=== PATIENT | male | born 1935 | race Caucasian/White ===

== ENCOUNTER → 2016-09-15 | Outpatient (CLI) | payer MEDICARE, OTHER ==
[~2016-09-15] MED LIST: ENXP100I SC; FURO20TA PO; HYDR-3454 PO; LORA10TA76 PO; PNT40TEC PO; SCR1T1 PO; WARF4TAB7 PO; WARF6TAB19 PO; WARFARIN
--- OUTSIDE RECORDS SUMMARY | 2016-09-15 07:43 | XMS REPORT | Continuity of Care Document ---
[facility] Unknown Phone Unavailable Care Team Providers Care Anthropology Professor Name Role Phone Boy Addison PCP Unavailable Source Comments Some departments are not documenting in the electronic medical record. If you do not see the information that you expected, contact Release of Information in the Health Information Management department at [phone] for further assistance in locating additional records[facility] Active Allergies and Adverse Reactions Allergen Noted Date Severity Reactions Comments Heparin 10/10/2013 SEE COMMENTS Heparin antibodies Lovenox 10/10/2013 SEE COMMENTS Heparin antibodies Current Medications Prescription Sig. Disp. Refills Start End Date Status Date pantoprazole DR Take 1 Tab by mouth twice 180 Tab 1 11/09/19 Active (PROTONIX) 40 mg tablet daily. 14 gabapentin (NEURONTIN) Take 2 Caps by mouth 540 Cap 1 11/09/19 Active 300 mg capsule three times daily. 14 docusate (COLACE) 100 mg Take 1 Cap by mouth twice 180 Cap 1 11/09/19 Active capsule daily. 14 polyethylene glycol 3350 Take 17 g by mouth daily. 1530 g 1 11/09/19 Active (GLYCOLAX; MIRALAX) 17 14 gram/dose powder senna/docusate Take 2 Tabs by mouth 360 Tab 1 11/09/19 Active (SENOKOT-S) 8.6/50 mg twice daily. 14 tablet loratadine (CLARITIN) 10 Take 1 Tab by mouth 90 Tab 1 11/09/19 Active mg tablet daily. 14 oxyCODone-acetaminophen Take 1-2 Tabs by mouth 30 Tab 0 11/09/19 Active (PERCOCET; ENDOCET; every 6 hours as needed 14 ROXICET) 5-325 mg tablet for Pain Earliest Fill Date: 11/08/13 Max 12 tabs/day cyclobenzaprine Take 1 Tab by mouth three 30 Tab 0 11/09/19 Active (FLEXERIL) 5 mg tablet times daily as needed. 14 warfarin (COUMADIN) 4 mg Take 1.5 Tabs by mouth 135 Tab 1 11/09/19 Active tablet daily. 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 Thrombocytopenia ([facility]) 10/09/2013 Acute blood loss anemia 10/09/2013 Shortness of breath 10/05/2013 PE (pulmonary embolism) 10/05/2013 Chronic anticoagulation 10/05/2013 DVT (deep venous thrombosis) ([facility]) 10/05/2013 Social History Tobacco Use Types Packs/Day Years Used Date Former Smoker 1 48 Quit: 06/07/2013 Smokeless Tobacco: Never Used Comments: Quit 6 months ago Alcohol Use Drinks/Week oz/Week Comments Yes 70 Cans of 42.0 Last drink was 1 week ago [place] of whilskey/day 2-3 beer years, beer before Last Filed Vital Signs Vital Sign Reading Time Taken Blood Pressure 119/70 11/08/2013 11:43 AM CDT Pulse 81 11/08/2013 11:43 AM CDT Temperature 36.6 C (97.8 F) 11/08/2013 11:43 AM CDT Respiratory Rate - - Height 1.778 m (5' 10") 10/29/2013 10:36 AM CDT Weight 94.2 kg (207 lb 10.8 oz) 11/08/2013 4:00 AM CDT Body Mass Index 29.8 11/08/2013 4:00 AM CDT Oxygen Saturation 97% 11/08/2013 11:43 AM CDT Plan of Care Health Maintenance Due Date Last Done Comments Physical (Comprehensive) 1944 Exam Pertussis Vaccine 1948 Tetanus Vaccine 1954 Shingles Vaccine 1997 Prevnar/Pneumovax (#1) 2002 Influenza Vaccine 03/20/2015 Results from Last 3 Months Not on file
== END ==
LOC: CARD 07:40
PROVIDERS: ATTEND Internal Medicine
DX: R00.2 Palpitations (principal)
CPT/HCPCS: 93225; 93226

== ENCOUNTER → 2017-06-15 | Outpatient (CLI) | payer MEDICARE, OTHER ==
[~2017-06-15] MED LIST changes: +CATHETER FLUSH 10 ML SYR IV PRN; +IOHEXOL 350 MG/ML 100 ML (OMNIPAQUE 350) VIAL IV ONE; +NS 100 ML (IVPB) BAG IV ONE
--- NOTE | 2017-06-15 13:22 | Diagnostic Imaging Report ---
PROCEDURE: US right lower extremity venous. TECHNIQUE: Multiple real-time grayscale images were obtained over the right lower extremity in various projections. Additional duplex Doppler and color Doppler images were also obtained. INDICATION: History of right lower extremity DVT. Right leg pain. FINDINGS: There is partial compressibility of the right common femoral vein and the proximal aspect of the right superficial femoral vein. The right common femoral vein demonstrates reversal of flow. There is also reversal of flow in the profunda femoris vein. Partial luminal patency with normal flow direction is seen in the upper segment of the right superficial femoral vein. The mid and lower segments of the superficial femoral vein appear normal with compressibility and flow seen. There are, however, abnormal waveforms with lack of augmentation and respiratory variation. The left common femoral vein demonstrates normal direction of flow. IMPRESSION: Nonocclusive thrombosis involving the right common femoral vein and portion of the right superficial femoral vein in the upper thigh, in favor of chronic DVT. There is reversal of flow in the right common femoral vein and in the profunda femoris suggestive of right iliac venous obstruction. The findings in the pelvis could be evaluated with a CT venogram. Dr. Addison is paged to discuss findings at time of dictation. Dictated by: Dictated on workstation # [id number]
[2017-06-15 15:21] LABS: BLOOD UREA NITROGEN 10 MG/DL (7-18); BUN/CREATININE RATIO 13; CREATININE SERUM 0.77 MG/DL (0.60-1.30); GFR ESTIMATED > 60
--- NOTE | 2017-06-15 16:56 | Diagnostic Imaging Report ---
PROCEDURE: CT abdomen and pelvis with contrast. TECHNIQUE: Multiple contiguous axial images were obtained through the abdomen and pelvis after administration of intravenous contrast. INDICATION: History of colon cancer and abnormal direction of flow in the right common femoral vein. FINDINGS: There is a 3.8 x 3 cm peripherally enhancing lesion within the right hepatic dome with craniocaudal measurement of 4.1 cm with centripetal progressing filling of contrast on delayed phase images compatible with a hemangioma. Scattered calcified granulomas in the spleen and liver are also seen. The pancreas and the adrenal glands appear unremarkable. Cholecystectomy clips are seen. The kidneys have symmetric enhancement and contrast excretion. There is no hydronephrosis. The abdominal aorta is normal in caliber. The right common iliac, right internal iliac, and right external iliac arteries are normally opacified. The upper aspect of the right common iliac vein is occluded. There is abnormal opacification that involves the distal aspect of the right common iliac vein or the right external iliac vein suggestive of an AV fistula. There is question of AV fistula connection seen on the arterial phase series 2 axial image 60 between the right internal iliac artery and the proximal aspect of the right external iliac vein. This is associated with significant dilatation of multiple pelvic veins and the veins in the groin. Suggestion of a recanalized old DVT in the right common femoral vein is seen. No significant free fluid or fluid collection in the abdomen or pelvis is seen. There is an IVC filter in the infrarenal IVC which appears to be patent. No significant free fluid or fluid collection in the abdomen or pelvis. There is diverticulosis. No evidence of diverticulitis. There is diastasis of the recti with an anterior bulge in the anterior abdominal wall, without a defined abdominal wall fascial defect or hernia. The osseous structures demonstrate mild degenerative changes in the lumbar spine and SI joints. IMPRESSION: 1. 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 2. 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 Multiple dilated venous collaterals around the right groin and in the pelvis are seen. The findings were discussed with Dr. Tom Addison by Dr. Madsen at 04:15 p.m. Dictated by: Dictated on workstation # [id number]
== END ==
LOC: RAD 11:41
PROVIDERS: ATTEND Internal Medicine
DX: I77.0 Arteriovenous fistula, acquired (principal); I86.2 Pelvic varices; Z85.038 Personal history of other malignant neoplasm of large intestine
CPT/HCPCS: 36415; 74177; 82565; 84520

== ENCOUNTER → 2017-07-24 | Outpatient (CLI) | payer MEDICARE, OTHER ==
[~2017-07-24] MED LIST changes: -CATHETER FLUSH 10 ML SYR IV PRN; -IOHEXOL 350 MG/ML 100 ML (OMNIPAQUE 350) VIAL IV ONE; -NS 100 ML (IVPB) BAG IV ONE
--- NOTE | 2017-07-24 20:16 | Diagnostic Imaging Report ---
EXAMINATION: Bilateral lower extremity venous ultrasound. INDICATION: Bilateral leg swelling and redness. FINDINGS: On the right, there is normal compression, flow and augmentation demonstrated from the common femoral vein through the popliteal vein and the visualized calf veins are patent. On the left, the common femoral vein cannot be visualized as there is a large low echogenicity collection within the left groin most suggestive of a hematoma. No internal vascularity is evident. This measures 11.0 x 4.2 cm. From the superficial femoral vein on there is normal compression, flow and augmentation. IMPRESSION: 1. Large left groin collection likely reflecting a hematoma, given reported recent procedure. 2. Common femoral vein on the left cannot be evaluated. Otherwise, there is no evidence to suggest deep venous thrombosis. Dictated by: Dictated on workstation # [id number]
== END ==
LOC: RAD 18:12
PROVIDERS: ATTEND Nurse Practitioner Family
DX: R93.7 Abnormal findings on diagnostic imaging of other parts of musculoskeletal system (principal); R22.43 Localized swelling, mass and lump, lower limb, bilateral
CPT/HCPCS: 93970

== ENCOUNTER → 2018-07-22 | Outpatient (CLI) | payer MEDICARE, OTHER ==
--- NOTE | 2018-07-22 09:43 | Diagnostic Imaging Report ---
CLINICAL INDICATION: Patient with carotid stenosis and visual changes. COMPARISON: None. EXAMINATION: Real-time carotid Doppler duplex imaging is performed bilaterally. Peak systolic velocity, ICA/CCA peak systolic ratio, spectral analysis, and vascular morphology are studied. FINDINGS: ARTERY VELOCITY Right Left CCA 0.66 m/s 0.58 m/s ICA 0.65 m/s 0.60 m/s ECA 0.64 m/s 0.49 m/s ICA/CCA 1.0 1.0 VERT.ART Antegrade Antegrade There are very minimal bilateral carotid artery atherosclerotic changes. IMPRESSION: There is no grayscale or Doppler evidence of significant vascular stenosis. Dictated by: Dictated on workstation # [id number]
== END ==
LOC: RAD 08:34
PROVIDERS: ATTEND Internal Medicine
DX: I65.23 Occlusion and stenosis of bilateral carotid arteries (principal); H53.9 Unspecified visual disturbance
CPT/HCPCS: 93880

== ENCOUNTER → 2018-08-05 | Outpatient (CLI) | payer MEDICARE, OTHER ==
--- NOTE | 2018-08-05 09:54 | Diagnostic Imaging Report ---
PROCEDURE: MR imaging of the brain without contrast. TECHNIQUE: Multiplanar, multisequence MR imaging of the brain was performed without contrast. INDICATION: Visual disturbance. No prior studies are available for comparison. The ventricles and sulci are consistent with the patient's age. There is moderate periventricular and subcortical white matter signal abnormality noted consistent with chronic microvascular ischemia and senescent change. No diffusion restriction is identified to suggest acute ischemia. The normal expected flow-voids within the carotid siphons are seen. No acute intra-axial or extra-axial hemorrhage is identified. Corpus callosum is unremarkable. The sella and parasellar structures are unremarkable. Note is made of moderate mucosal thickening bilateral maxillary sinuses. IMPRESSION: Chronic and senescent changes. No acute intracranial process is detected. Dictated by: Dictated on workstation # [id number]
== END ==
LOC: RAD 08:15
PROVIDERS: ATTEND Internal Medicine
DX: H53.9 Unspecified visual disturbance (principal); R54 Age-related physical debility
CPT/HCPCS: 70551

== ENCOUNTER 2019-07-07 05:11 | Emergency (ER) | payer MEDICARE, OTHER ==
[~2019-07-07] VITALS: Ht 177.8 cm; Wt 99.8 kg
[2019-07-07] MEDS ORDERED: LACTATED RINGERS 1,000 ML IV ONE (05:39)
[2019-07-07 05:45] LABS: BASOPHILS % (AUTO) 0 % (0-10); EOSINOPHILS % (AUTO) 0 % (0-10); HEMATOCRIT 43 % (40-54); HEMOGLOBIN 14.9 G/DL (13.3-17.7); LYMPHOCYTES # (AUTO) 0.2 X 10^3 (1.0-4.0); LYMPHOCYTES % (AUTO) 3 % (12-44); MEAN CORPUSCULAR HEMOGLOBIN 34 PG (25-34); MEAN CORPUSCULAR HGB CONC 35 G/DL (32-36); MEAN CORPUSCULAR VOLUME 98 FL (80-99); MONOCYTES # (AUTO) 0.6 X 10^3 (0.0-1.0); MONOCYTES % (AUTO) 8 % (0-12); NEUTROPHILS # (AUTO) 6.9 X 10^3 (1.8-7.8); NEUTROPHILS % (AUTO) 89 % (42-75); PLATELET COUNT 187 10^3/uL (130-400); RED CELL DISTRIBUTION WIDTH 14.1 % (10.0-14.5); WHITE BLOOD COUNT 7.7 10^3/uL (4.3-11.0)
[2019-07-07] MEDS ORDERED: ONDANSETRON 4 MG/2 ML (SDV) Z0FRAN IVP ONE (05:45)
[2019-07-07] MEDS ORDERED: fentaNYL INJECTION 100 MCG/2 ML AMP IVP ONE ×3 (05:45→07:30)
--- NOTE | 2019-07-07 05:48 | ED Abdominal Pain ---
General Chief Complaint: Abdominal/GI Problems Stated Complaint: ABD & BACK PAIN Nursing Triage Note: abdominal/back pain since 0100 Sepsis Screen: No Definite Risk Source of Information: Patient (MARCIN ROGER ) History of Present Illness Date Seen by Provider: Jul 07, 2019 Time Seen by Provider: 05:20 Initial Comments PT ARRIVES VIA POV FROM HOME C/O SEVERE UPPER ABDOMINAL PAIN, RADIATING THROUGH TO BACK--WOKE HIM UP AT 0100 THIS AM NOTHING WORSENS OR IMPROVES PAIN + NAUSEA, VOMITED A SMALL AMOUNT HAD SMALL, HARD BM AT 1700 YESTERDAY NO PROBLEMS URINATING--VOIDED JUST PRIOR TO ARRIVAL--STATES URINE WAS VERY GURVINDER NO FEVER LAST FOOD INTAKE WAS AROUND 1700 YESTERDAY--BAKED POTATO. PT DRINKS ALCOHOL ON REGULAR / DAILY BASIS--HARD LIQUOR/WHISKEY HX OF CHOLECYSTECTOMY NO OTHER ABDOMINAL SURGERIES, PER PT, BUT PER OLD RECORDS, PT HAS HAD BILATERAL INGUINAL HERNIA REPAIRS PT HAS HAD MULTIPLE DVT'S AND PE'S, AND IS ON BLOOD THINNER, AND HAS A VENA CAVA FILTER IN PLACE NO CHEST PAIN NO SHORTNESS OF BREATH PCP: DR. Radha ORR (MARCIN ROGER DO) Allergies and Home Medications Allergies Coded Allergies: No Known Drug Allergies (Verified , 01/13/08) Home Medications Warfarin Sodium 4 Mg Tablet, 4 MG PO DAILY ON , (Reported) Warfarin Sodium 6 Mg Tablet, 6 MG PO DAILY ON , (Reported) Patient Home Medication List Home Medication List Reviewed: Yes (AMISHA HOOVER) Review of Systems Review of Systems Constitutional: no symptoms reported Respiratory: No Symptoms Reported Cardiovascular: No Symptoms Reported Gastrointestinal: See HPI, Abdominal Pain, Constipated; Denies Diarrhea; Nausea, Vomiting Genitourinary: No Symptoms Reported Musculoskeletal: see HPI, back pain Skin: no symptoms reported Psychiatric/Neurological: Anxiety Endocrine: No Symptoms Reported Hematologic/Lymphatic: See HPI (MARCIN ROGER DO) Past Ggummlz-Jizsbd-Nbiwwo Hx Patient Social History Alcohol Use: Regular Use Alcohol Beverage of Choice: Whiskey Recreational Drug Use: No Smoking Status: Former Smoker 2nd Hand Smoke Exposure: No Recent Foreign Travel: No Contact w/Someone Who Travel: No Recent Infectious Disease Expo: No Recent Hopitalizations: No Physical Abuse: No Sexual Abuse: No Mistreated: No Fear: No (MARCIN ROGER DO) Immunizations Up To Date Tetanus Booster (TDap): Less than 5yrs Date of Pneumonia Vaccine: Jun 09, 2019 Date of Influenza Vaccine: Apr 22, 2019 (MARCIN ROGER Keegan LEMON) Seasonal Allergies Seasonal Allergies: Yes (KANAMARCIN Keegan LEMON) Past Medical History Surgeries: Yes (BILAT INGUINAL HERNIA REPAIRS;IVC FILTER;EGD/COLONOSCOPIES; FISTULA REPAIR;) Abdominal, Gallbladder Respiratory: Yes Pulmonary Embolism, Emphysema Cardiac: Yes Deep Vein Thrombosis Neurological: No Reproductive Disorders: No Sexually Transmitted Disease: No Genitourinary: No Gastrointestinal: Yes (ERCP WITH STENT/CHOLECYSTECTOMY;BILAT INGUINAL HERNIA REPAIRS;EGD'S/COLONOS) Abdominal Hernia, Gastrointestinal Bleed, Diverticulosis, Ulcer Musculoskeletal: Yes Arthritis Endocrine: No HEENT: No Cancer: No Psychosocial: Yes Anxiety Integumentary: No Blood Disorders: Yes (HX P.E.,DVT) (KANAMARCIN Allison DO) Family Medical History Stroke 03 MOTHER Physical Exam Vital Signs Vital Signs - First Documented 07/07/19 07/07/19 05:18 09:30 Temp 36.6 Pulse 77 Resp 16 B/P (MAP) 138/95 (109) Pulse Ox 93 O2 Delivery Room Air O2 Flow Rate 2.00 (AMISHA HOOVER) Vital Signs Capillary Refill : Less Than 3 Seconds (MARCIN ROGER ) Height/Weight/BMI Height: 5'10" Weight: 220lbs. 0.0oz. 99.219175mr; 31.00 BMI Method:Stated General Appearance: WD/WN, other (ANXIOUS, MILD HYPERVENTILATION) HEENT: scleral icterus (R), scleral icterus (L) Neck: normal inspection Respiratory: normal breath sounds, no respiratory distress, no accessory muscle use Cardiovascular: normal peripheral pulses (+2/4 BILATERALLY), regular rate, rhythm, systolic murmur (2/6 ) Gastrointestinal: no organomegaly, no pulsatile mass, abnormal bowel sounds (HYPERACTIVE, HIGH PITCHED. ), distended (SLIGHTLY DISTENDED BUT STILL SOFT. ); No guarding, No rebound; tenderness (DIFFUSE UPPER ABDOMINAL TENDNERESS); No hernia, No mass Extremities: normal range of motion, non-tender, no calf tenderness, other (FEET BOTH COOL, SLIGHTLY DELAYED CAP REFILL. PULSES +2/4 BILATERALLY. NO EDEMAN. 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 ) Back: no CVA tenderness Neurologic/Psychiatric: cardiology physician assistant II-XII nml as tested, no motor/sensory deficits, alert, oriented x 3, other (ANIXOUS) Skin: warm/dry; No diaphoresis; jaundice; No pallor (MARCIN ROGER DO) Progress/Results/Core Measures Results/Orders Lab Results Laboratory Tests Test 07/07/19 05:35 07/07/19 07:47 Range/Units White Blood Count 7.7 4.3-11.0 10^3/uL Red Blood Count 4.41 4.35-5.85 10^6/uL Hemoglobin 14.9 13.3-17.7 G/DL Hematocrit 43 40-54 % Mean Corpuscular Volume 98 80-99 FL Mean Corpuscular Hemoglobin 34 25-34 PG Mean Corpuscular Hemoglobin Concent 35 32-36 G/DL Red Cell Distribution Width 14.1 10.0-14.5 % Platelet Count 187 130-400 10^3/uL Mean Platelet Volume 10.0 7.4-10.4 FL Neutrophils (%) (Auto) 89 H 42-75 % Lymphocytes (%) (Auto) 3 L 12-44 % Monocytes (%) (Auto) 8 0-12 % Eosinophils (%) (Auto) 0 0-10 % Basophils (%) (Auto) 0 0-10 % Neutrophils # (Auto) 6.9 1.8-7.8 X 10^3 Lymphocytes # (Auto) 0.2 L 1.0-4.0 X 10^3 Monocytes # (Auto) 0.6 0.0-1.0 X 10^3 Eosinophils # (Auto) 0.0 0.0-0.3 10^3/uL Basophils # (Auto) 0.0 0.0-0.1 10^3/uL Neutrophils % (Manual) 88 % Lymphocytes % (Manual) 3 % Monocytes % (Manual) 9 % Eosinophils % (Manual) 0 % Basophils % (Manual) 0 % Band Neutrophils 0 % Blood Morphology Comment NORMAL Prothrombin Time 53.2 *H 12.2-14.7 SEC INR Comment 5.6 *H 0.8-1.4 Activated Partial Thromboplast Time 66 H 24-35 SEC Sodium Level 139 135-145 MMOL/L Potassium Level 4.2 3.6-5.0 MMOL/L Chloride Level 104 98-107 MMOL/L Carbon Dioxide Level 21 21-32 MMOL/L Anion Gap 14 5-14 MMOL/L Blood Urea Nitrogen 10 7-18 MG/DL Creatinine 0.84 0.60-1.30 MG/DL Estimat Glomerular Filtration Rate > 60 BUN/Creatinine Ratio 12 Glucose Level 137 H 70-105 MG/DL Calcium Level 9.4 8.5-10.1 MG/DL Corrected Calcium 9.6 8.5-10.1 MG/DL Magnesium Level 1.9 1.6-2.4 MG/DL Total Bilirubin 7.0 H 0.1-1.0 MG/DL Aspartate Amino Transf (AST/SGOT) 184 H 5-34 U/L Alanine Aminotransferase (ALT/SGPT) 250 H 0-55 U/L Alkaline Phosphatase 661 H 40-136 U/L Troponin I < 0.028 <0.028 NG/ML Total Protein 7.2 6.4-8.2 GM/DL Albumin 3.8 3.2-4.5 GM/DL Amylase Level 46 25-125 U/L Lipase 22 8-78 U/L Urine Color YELLOW Urine Clarity CLEAR Urine pH 5.5 5-9 Urine Specific [place] 1.010 L 1.016-1.022 Urine Protein NEGATIVE NEGATIVE Urine Glucose (UA) NEGATIVE NEGATIVE Urine Ketones 1+ H NEGATIVE Urine Nitrite NEGATIVE NEGATIVE Urine Bilirubin 2+ H NEGATIVE Urine Urobilinogen 2.0 < = 1.0 MG/DL Urine Leukocyte Esterase NEGATIVE NEGATIVE Urine RBC (Auto) 1+ H NEGATIVE Urine RBC 2-5 H /HPF Urine WBC NONE /HPF Urine Squamous Epithelial Cells NONE /HPF Urine Crystals NONE /LPF Urine Bacteria NEGATIVE /HPF Urine Casts NONE /LPF Urine Mucus NEGATIVE /LPF Urine Culture Indicated NO (AMISHA HOOVER) My Orders Orders - AMISHA HOOVER Ct Abdomen/Pelvis W (07/07/19 06:03) Fentanyl Injection (Sublimaze Injection (07/07/19 06:15) Iohexol Injection (Omnipaque 350 Mg/Ml 1 (07/07/19 06:15) Received Contrast (Hold Metformin- Contr (07/07/19 06:15) Ns (Ivpb) (Sodium Chloride 0.9% Ivpb Bag (07/07/19 06:15) Fentanyl Injection (Sublimaze Injection (07/07/19 07:30) (AMISHA HOOVER) Medications Given in ED Current Medications Medications Dose Ordered Sig/Farrukh Route Start Time Stop Time Status Last Admin Dose Admin Fentanyl Citrate 25 mcg ONCE ONCE IVP 07/07/19 06:15 07/07/19 06:16 DC 07/07/19 06:16 25 MCG Fentanyl Citrate 50 mcg ONCE ONCE IVP 07/07/19 07:30 07/07/19 07:31 DC 07/07/19 07:28 50 MCG Iohexol 100 ml ONCE ONCE IV 07/07/19 06:15 07/07/19 06:17 DC 07/07/19 06:35 100 ML Pantoprazole 40 mg ONCE ONCE IV 07/07/19 06:00 07/07/19 06:17 DC 07/07/19 05:54 40 MG Sodium Chloride 100 ml ONCE ONCE IV 07/07/19 06:15 07/07/19 06:17 DC 07/07/19 06:36 80 ML (AMISHA HOOVER) Vital Signs/I&O 07/07/19 07/07/19 05:18 09:30 Temp 36.6 Pulse 77 86 Resp 16 17 B/P (MAP) 138/95 (109) 156/75 Pulse Ox 93 98 O2 Delivery Room Air Nasal Cannula O2 Flow Rate 2.00 (AMISHA HOOVER) Blood Pressure Mean: 109 Progress Progress Note : Progress Note 0600--CARE TURNED OVER TO DR. HOOVER, ALL STUDIES PENDING (MARCIN ROGER DO) Initial ECG Impression Date: Jul 07, 2019 Initial ECG Impression Time: 05:29 Initial ECG Rate: 80 Initial ECG Rhythm: Normal Sinus (MARCIN ROGER DO) Initial ECG Intervals: Normal Initial ECG Impression: Normal, Nonspecific Changes Comment No clinically relevant ST changes. (AMISHA HOOVER) Diagnostic Imaging Diagonstic Imaging: CT (with IV contrast) Plain Films/CT/US/NM/MRI: abdomen, pelvis Comments NAME: [facility] REC#: [id number] PT STATUS: REG ER : 1935 PHYSICIAN: AMISHA HOOVER MD ADMIT DATE: 07/07/19/ER Draft Date of Exam:07/07/19 CT ABDOMEN/PELVIS W PROCEDURE: CT abdomen and pelvis with contrast. TECHNIQUE: Multiple contiguous axial images were obtained through the abdomen and pelvis after administration of intravenous contrast. Auto Exposure Controls were utilized during the CT exam to meet ALARA standards for radiation dose reduction. INDICATION: Abdominal and back pain. COMPARISON: 06/15/2017 FINDINGS: Included portions of the lung bases show small micronodular subpleural density within the lateral margin of the left lower lobe measuring approximately 4 to 5 mm in diameter. This is stable compared to 05/01/2014. CT ABDOMEN: Since the previous exam, patient has developed moderate intra and extrahepatic biliary ductal dilatation. Common bile duct measures 1.5 cm in diameter. Note is made of previous cholecystectomy. Although patient's can develop intra- and extrahepatic biliary ductal dilatation status post cholecystectomy, patient was status post previous cholecystectomy on prior exam dated 05/01/2014, but show no appreciable dilatation of the intrahepatic or extrahepatic biliary ductal systems. Note is again made of benign hemangioma within the dome of the right lobe of the liver that measures 3.4 x 2.8 cm. No other discrete hepatic masses are seen. Pancreas has a normal appearance as well. No discernible pancreatic head mass is identified. Pancreatic duct is decompressed. There is hyperdense material within the renal calyces, which is felt to be on the basis of early excretion of contrast. Otherwise, bilateral benign-appearing renal cysts are noted. No solid renal masses are identified on either side. The bilateral adrenal glands and spleen have a normal CT appearance. There is colonic diverticulosis, but no CT evidence of acute diverticulitis. Small bowel loops are nondistended. Normal appendix is identified. Small hiatal hernia is noted. There is no loculated fluid collection, free fluid, nor free air within the abdomen. No abnormal mesenteric or retroperitoneal adenopathy is seen. Indwelling IVC filter is present. There is mild calcified aortic and arterial atherosclerosis. Osseous structures show no acute abnormalities. CT pelvis: Urinary bladder is grossly unremarkable. There is no loculated fluid collection, free fluid, nor free air within the pelvis. No abnormal lymph nodes are identified. Osseous structures show no acute abnormalities. IMPRESSION: 1. Interval development of moderate dilatation of the intra- and extrahepatic biliary ducts. Again, although findings can be seen in patients status post previous cholecystectomy, this is new when compared to 05/01/2014. Additionally, the patient was status post previous cholecystectomy at that time as well. This does raise concern for malignant obstruction, potentially at the region of the ampulla. Correlation with ERCP is advised. 2. Redemonstration of benign hepatic hemangioma within the dome of the right lobe. 3. Small hiatal hernia. 4. Benign-appearing bilateral renal cysts. Dictated on workstation # [id number] Dict: 07/07/19719 Trans: 07/07/1930 [id number] Interpreted by: VIVIANA AELX MD Electronically signed by: Reviewed: Reviewed by Me (AMISHA HOOVER) Departure Impression Primary Impression: Abdominal pain Qualified Codes: R10.13 - Epigastric pain Additional Impression: Acquired hyperbilirubinemia Disposition: XF SHT-TRM HOSP Condition: Stable Transfer Transfer Reason: Exceeds level of care (GI) Time Spoke to Accepting Phy: 07:50 Transfer Progress Notes [place] 0745: Seeking Transfer for GI consult and ERCP and management of hyperbilirubinemia and abdominal pain. 0750: Dr Rangel, GI: He agrees to consult on the patient and will admit to medicine. 0755: Dr. Owen agrees to admit the patient medical floor. Transfer Facility: [place], [place] Method of Transfer: EMS (AMISHA HOOVER) Departure-Patient Inst. Referrals: TUNDE ORR MD (PCP/Family) Primary Care Physician Copy Copies To 1: TUNDE ORR MD, LISA K DO Jul 07, 2019 05:48 AMISHA HOOVER Jul 07, 2019 07:56
[2019-07-07] MEDS ORDERED: PANTOPRAZOLE 40 MG (PROTONIX) VIAL IV ONE (06:00)
[2019-07-07 06:02] LABS: ALANINE AMINOTRANSFERASE 250 U/L (0-55); ALBUMIN 3.8 GM/DL (3.2-4.5); ALKALINE PHOSPHATASE 661 U/L (40-136); AMYLASE 46 U/L (25-125); BUN/CREATININE RATIO 12; CALCIUM 9.4 MG/DL (8.5-10.1); CARBON DIOXIDE 21 MMOL/L (21-32); CHLORIDE 104 MMOL/L (98-107); CREATININE SERUM 0.84 MG/DL (0.60-1.30); GFR ESTIMATED > 60; GLUCOSE 137 MG/DL (70-105); LIPASE 22 U/L (8-78); MAGNESIUM 1.9 MG/DL (1.6-2.4); POTASSIUM 4.2 MMOL/L (3.6-5.0); SODIUM 139 MMOL/L (135-145); TOTAL PROTEIN 7.2 GM/DL (6.4-8.2)
[2019-07-07 06:11] LABS: INR 5.6 (0.8-1.4); PROTHROMBIN TIME PATIENT 53.2 SEC (12.2-14.7)
[2019-07-07] MEDS ORDERED: NS 100 ML (IVPB) BAG IV ONE (06:15)
[2019-07-07] MEDS ORDERED: IOHEXOL 350 MG/ML 100 ML (OMNIPAQUE 350) VIAL IV ONE (06:15)
[2019-07-07] MEDS ORDERED: HOLD METFORMIN - RECEIVED CONTRAST 20 ML VIAL IV SCH (06:15)
[2019-07-07 06:59] LABS: BAND NEUTROPHILS 0 %; BASOPHILS % (MANUAL) 0 %; EOSINOPHILS % (MANUAL) 0 %; LYMPHOCYTES % (MANUAL) 3 %; MONOCYTES % (MANUAL) 9 %; NEUTROPHILS % (MANUAL) 88 %; RBC MORPH NORMAL
--- NOTE | 2019-07-07 07:19 | NUR ---
INTRODUCED SELF TO PT. WARM BLANKETS GIVEN. PT CONTINUES TO COMPLAIN OF ABD PAIN. DR HOOVER NOTIFIED.
--- NOTE | 2019-07-07 07:30 | Diagnostic Imaging Report ---
PROCEDURE: CT abdomen and pelvis with contrast. TECHNIQUE: Multiple contiguous axial images were obtained through the abdomen and pelvis after administration of intravenous contrast. Auto Exposure Controls were utilized during the CT exam to meet ALARA standards for radiation dose reduction. INDICATION: Abdominal and back pain. COMPARISON: 06/15/2017 FINDINGS: Included portions of the lung bases show small micronodular subpleural density within the lateral margin of the left lower lobe measuring approximately 4 to 5 mm in diameter. This is stable compared to 05/01/2014. CT ABDOMEN: Since the previous exam, patient has developed moderate intra and extrahepatic biliary ductal dilatation. Common bile duct measures 1.5 cm in diameter. Note is made of previous cholecystectomy. Although patient's can develop intra- and extrahepatic biliary ductal dilatation status post cholecystectomy, patient was status post previous cholecystectomy on prior exam dated 05/01/2014, but show no appreciable dilatation of the intrahepatic or extrahepatic biliary ductal systems. Note is again made of benign hemangioma within the dome of the right lobe of the liver that measures 3.4 x 2.8 cm. No other discrete hepatic masses are seen. Pancreas has a normal appearance as well. No discernible pancreatic head mass is identified. Pancreatic duct is decompressed. There is hyperdense material within the renal calyces, which is felt to be on the basis of early excretion of contrast. Otherwise, bilateral benign-appearing renal cysts are noted. No solid renal masses are identified on either side. The bilateral adrenal glands and spleen have a normal CT appearance. There is colonic diverticulosis, but no CT evidence of acute diverticulitis. Small bowel loops are nondistended. Normal appendix is identified. Small hiatal hernia is noted. There is no loculated fluid collection, free fluid, nor free air within the abdomen. No abnormal mesenteric or retroperitoneal adenopathy is seen. Indwelling IVC filter is present. There is mild calcified aortic and arterial atherosclerosis. Osseous structures show no acute abnormalities. CT pelvis: Urinary bladder is grossly unremarkable. There is no loculated fluid collection, free fluid, nor free air within the pelvis. No abnormal lymph nodes are identified. Osseous structures show no acute abnormalities. IMPRESSION: 1. Interval development of moderate dilatation of the intra- and extrahepatic biliary ducts. Again, although findings can be seen in patients status post previous cholecystectomy, this is new when compared to 05/01/2014. Additionally, the patient was status post previous cholecystectomy at that time as well. This does raise concern for malignant obstruction, potentially at the region of the ampulla. Correlation with ERCP is advised. 2. Redemonstration of benign hepatic hemangioma within the dome of the right lobe. 3. Small hiatal hernia. 4. Benign-appearing bilateral renal cysts. Dictated by: Dictated on workstation # [id number]
--- NOTE | 2019-07-07 07:38 | NUR ---
PT PULSE OX DROPPED TO 88% ROOM AIR AFTER FENTENYL GIVEN. OXYGEN APPLIED AT 2L. NOTIFIED.
--- NOTE | 2019-07-07 07:52 | NUR ---
RADIOLOGY NOTIFIED OF NEEDING CT CLOUDED TO [facility].
[2019-07-07 07:57] LABS: CLARITY,URINE CLEAR; COLOR,URINE YELLOW; GLUCOSE, URINE (UA) NEGATIVE (NEGATIVE); KETONES,URINE 1+ (NEGATIVE); LEUKOCYTE ESTERASE ,URINE NEGATIVE (NEGATIVE); NITRITE,URINE NEGATIVE (NEGATIVE); PH,URINE 5.5 (5-9); PROTEIN,URINE NEGATIVE (NEGATIVE)
--- NOTE | 2019-07-07 08:00 | NUR ---
FACE SHEET AND VITALS FAXED TO [facility]. SOUSA IN TALKING TO THE PT AT THIS TIME.
[2019-07-07 08:34] LABS: BACTERIA,URINE NEGATIVE /HPF; BILIRUBIN,URINE 2+ (NEGATIVE)
--- NOTE | 2019-07-07 08:50 | NUR ---
SHIFT CAPTAIN AND DISPATCH NOTIFEID OF NEEDING A TRANSFER.
[2019-07-07 09:30] VITALS: BP 156/75
== END 2019-07-07 09:30 | disposition short-term general hospital (02) ==
LOC: EDUNIT# 05:11 → ER 05:14
DX: R10.11 Right upper quadrant pain (principal); E80.6 Other disorders of bilirubin metabolism; J43.9 Emphysema, unspecified; F41.9 Anxiety disorder, unspecified; Z90.49 Acquired absence of other specified parts of digestive tract; Z87.19 Personal history of other diseases of the digestive system; Z87.891 Personal history of nicotine dependence; Z86.718 Personal history of other venous thrombosis and embolism; Z86.711 Personal history of pulmonary embolism; Z79.01 Long term (current) use of anticoagulants
CPT/HCPCS: 36415; 74177; 80053; 81000; 82150; 83690; 83735; 84484; 85007; 85027; 85610; 85730; 93005; 93041; 96361; 96374; 96375; 96376

== ENCOUNTER → 2021-03-12 | Outpatient (CLI) | payer MEDICARE, OTHER ==
--- NOTE | 2021-03-12 10:45 | Diagnostic Imaging Report ---
PROCEDURE: US Hepatic (Liver). TECHNIQUE: Multiple real-time grayscale images were obtained over the right upper quadrant in various projections. INDICATION: Jaundice. Comparison with CT 07/07/2019. FINDINGS: The biliary radicals are mildly dilated and appear similar to previous CT scan. Common bile duct measures 8 mm. No stones are seen. The liver parenchyma appears homogeneous with with the exception of the echogenic area in the dome of the liver correlating with known hemangioma from previous CT scan. This measures approximately 2.8 x 2.6 cm. No significant fatty changes noted. The pancreas and aorta obscured by bowel gas. The IVC and portal vein appear normal with Doppler sampling. Right kidney measures 11.5 x 5.6 x 6.7 cm and shows a simple cyst off of the midportion measuring 4.7 cm. There is no ascites. IMPRESSION: 1. Mild dilatation of the intrahepatic biliary radicles and common bile duct which appear quite similar to 2019 CT. 2. Stable appearing hemangioma in the dome of the liver. Dictated by: Dictated on workstation # [id number]
== END ==
LOC: RAD 09:32
PROVIDERS: ATTEND Family Medicine
DX: R17 Unspecified jaundice (principal); I86.8 Varicose veins of other specified sites
CPT/HCPCS: 76705

== ENCOUNTER 2022-03-10 17:29 | Emergency (ER) | payer MEDICARE, OTHER ==
--- NOTE | 2022-03-10 19:05 | Diagnostic Imaging Report ---
EXAMINATION: Chest, one view. HISTORY: Chest pain. COMPARISON: None available. FINDINGS: The lungs are clear without edema or pneumonia. No pleural effusion or pneumothorax. Heart size is normal. IMPRESSION: 1. Clear lungs. Dictated by: Dictated on workstation # [id number]
[2022-03-10 19:16] LABS: BASOPHILS % (AUTO) 1 % (0-10); MEAN CORPUSCULAR HEMOGLOBIN 34 pg (25-34)
[2022-03-10 19:18] LABS: EOSINOPHILS # (AUTO) 0.3 10^3/uL (0.0-0.3); EOSINOPHILS % (AUTO) 6 % (0-10); HEMATOCRIT 37 % (40-54); HEMOGLOBIN 12.7 g/dL (13.3-17.7); LYMPHOCYTES # (AUTO) 0.7 10^3/uL (1.0-4.0); LYMPHOCYTES % (AUTO) 15 % (12-44); MEAN CORPUSCULAR HGB CONC 35 g/dL (32-36); MEAN CORPUSCULAR VOLUME 99 fL (80-99); MEAN PLATELET VOLUME 11.1 fL (9.0-12.2); MONOCYTES # (AUTO) 0.4 10^3/uL (0.0-1.0); MONOCYTES % (AUTO) 9 % (0-12); NEUTROPHILS # (AUTO) 3.5 10^3/uL (1.8-7.8); NEUTROPHILS % (AUTO) 70 % (42-75); PLATELET COUNT 119 10^3/uL (130-400)
[2022-03-10 19:29] LABS: INR 2.7 (0.8-1.4)
[2022-03-10 19:48] LABS: ALBUMIN 4.1 GM/DL (3.2-4.5); BILIRUBIN,TOTAL 1.2 MG/DL (0.1-1.0); CREATININE SERUM 0.84 MG/DL (0.60-1.30); MAGNESIUM 2.1 MG/DL (1.6-2.4)
[2022-03-10 20:17] LABS: TSH (THYROID ANALYZER) 1.34 UIU/ML (0.35-4.94)
[2022-03-10 20:36] LABS: POTASSIUM 4.5 MMOL/L (3.6-5.0)
--- NOTE | 2022-03-10 20:53 | ED Cardiac General ---
History of Present Illness General Chief Complaint: Cardiac/General Problems Stated Complaint: ABNORMAL EKG Nursing Triage Note: PT AMB TO RM 2 WITH C/O ABNORMAL EKG TODAY. PT SAID DR SANTOS CALLED HIM FOR HIS RESULTS OF HIS EKG AND TOLD HIM TO COME TO ER SINCE HE WAS IN AFIB. PT HAS KNOWN DIAGNOSIS OF AFIB Source: patient Exam Limitations: no limitations History of Present Illness Date Seen by Provider: Mar 10, 2022 Time Seen by Provider: 18:04 Initial Comments This 86-year-old gentleman presents to the emergency room at the direction of Dr. Orr's clinic after an EKG was obtained revealing atrial fibrillation. Patient reports a long history of palpitations that have worsened in recent days. He denies any shortness of air or chest pain. He obtained an EKG from the hospital with an outpatient order provided by Dr. Octavio Orr's clinic. After noting the atrial fibrillation, he was referred to the emergency room. He continues to be in atrial fibrillation at this time and is rate controlled with heart rate in the 90-110 range. Patient denies any worsening of his condition in any other respect. 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 He also takes atenolol 25 mg at bedtime and appears to be rate controlled on that dosage. According to patient, he has no prior diagnosis of atrial fibrillation, only palpitations. He has chronic lower extremity edema which he reports is stable and no worse than usual. Allergies and Home Medications Allergies Coded Allergies: No Known Drug Allergies (Verified , 01/13/08) Patient Home Medication List Home Medication List Reviewed: Yes Warfarin Sodium (Warfarin Sodium) 4 Mg Tablet, 4 MG PO DAILY ON , (Reported) Entered as Reported by: DEMETRIO TAPIA on 10/04/131826 Warfarin Sodium (Warfarin Sodium) 6 Mg Tablet, 6 MG PO DAILY ON , (Reported) Entered as Reported by: DEMETRIO TAPIA on 10/04/131826 Review of Systems Review of Systems Constitutional: no symptoms reported EENTM: No Symptoms Reported Respiratory: No Symptoms Reported Cardiovascular: See HPI Gastrointestinal: No Symptoms Reported Genitourinary: No Symptoms Reported Musculoskeletal: no symptoms reported Skin: no symptoms reported Psychiatric/Neurological: No Symptoms Reported Endocrine: No Symptoms Reported Hematologic/Lymphatic: No Symptoms Reported Past Yqijhji-Zohjjy-Cpslgk Hx Patient Social History Tobacco Use?: No Substance use?: No Alcohol Use?: Yes Alcohol type: Hard Liquor Alcohol Frequency: Couple times a week Pt feels they are or have been: No Immunizations Up To Date Tetanus Booster (TDap): Less than 5yrs Influenza Vaccine Up-to-Date: Yes; Up-to-Date First/Initial COVID19 Vaccinat: YES Second COVID19 Vaccination Dixon: YES Third COVID19 Vaccination Date: YES COVID19 Vaccine Ammonia Still Operator: InferXA Seasonal Allergies Seasonal Allergies: Yes Past Medical History Surgery/Hospitalization HX: AFIB LAP CHIOMA, HERNIA X2 Surgeries: Yes (BILAT INGUINAL HERNIA REPAIRS;IVC FILTER;EGD/COLONOSCOPIES; FISTULA REPAIR;) Abdominal, Gallbladder Respiratory: Yes Pulmonary Embolism, Emphysema Cardiac: Yes Atrial Fibrillation, Deep Vein Thrombosis Neurological: No Reproductive Disorders: No Sexually Transmitted Disease: No Genitourinary: No Gastrointestinal: Yes (ERCP WITH STENT/CHOLECYSTECTOMY;BILAT INGUINAL HERNIA REPAIRS;EGD'S/COLONOS) Abdominal Hernia, Gastrointestinal Bleed, Diverticulosis, Ulcer Musculoskeletal: Yes Arthritis Endocrine: No HEENT: No Cancer: No Psychosocial: Yes Anxiety Integumentary: No Blood Disorders: Yes (HX P.E.,DVT) Family Medical History Stroke 03 MOTHER Physical Exam Vital Signs Vital Signs - First Documented 03/10/22 17:56 Temp 36.6 Pulse 105 Resp 18 B/P (MAP) 119/81 (94) Capillary Refill : Height, Weight, BMI Height: 5'10" Weight: 220lbs. 0.0oz. 99.208771qw; 31.00 BMI Method:Stated General Appearance: No Apparent Distress, WD/WN HEENT: PERRL/EOMI, Normal ENT Inspection Neck: Normal Inspection; No JVD Respiratory: Lungs Clear, Normal Breath Sounds, No Accessory Muscle Use Cardiovascular: No Murmur, Normal Peripheral Pulses, Irregularly Irregular, Other (Firm bilateral lower extremity edema) Gastrointestinal: Non Tender, Soft Extremity: Normal Inspection, No Pedal Edema Neurologic/Psychiatric: Alert, Oriented x3, No Motor/Sensory Deficits, Normal Mood/Affect Skin: Normal Color, Warm/Dry Progress/Results/Core Measures Results/Orders Lab Results Laboratory Tests Test 03/10/22 19:08 Range/Units White Blood Count 5.0 4.3-11.0 10^3/uL Red Blood Count 3.71 L 4.30-5.52 10^6/uL Hemoglobin 12.7 L 13.3-17.7 g/dL Hematocrit 37 L 40-54 % Mean Corpuscular Volume 99 80-99 fL Mean Corpuscular Hemoglobin 34 25-34 pg Mean Corpuscular Hemoglobin Concent 35 32-36 g/dL Red Cell Distribution Width 16.0 H 10.0-14.5 % Platelet Count 119 L 130-400 10^3/uL Mean Platelet Volume 11.1 9.0-12.2 fL Immature Granulocyte % (Auto) 0 % Neutrophils (%) (Auto) 70 42-75 % Lymphocytes (%) (Auto) 15 12-44 % Monocytes (%) (Auto) 9 0-12 % Eosinophils (%) (Auto) 6 0-10 % Basophils (%) (Auto) 1 0-10 % Neutrophils # (Auto) 3.5 1.8-7.8 10^3/uL Lymphocytes # (Auto) 0.7 L 1.0-4.0 10^3/uL Monocytes # (Auto) 0.4 0.0-1.0 10^3/uL Eosinophils # (Auto) 0.3 0.0-0.3 10^3/uL Basophils # (Auto) 0.0 0.0-0.1 10^3/uL Immature Granulocyte # (Auto) 0.0 0.0-0.1 10^3/uL Percent Immature Platelet Fraction 3.1 0.0-7.6 % Prothrombin Time 29.0 H 12.2-14.7 SEC INR Comment 2.7 H 0.8-1.4 Activated Partial Thromboplast Time 41 H 24-35 SEC Sodium Level 141 135-145 MMOL/L Potassium Level 4.5 3.6-5.0 MMOL/L Chloride Level 109 H 98-107 MMOL/L Carbon Dioxide Level 20 L 21-32 MMOL/L Anion Gap 12 5-14 MMOL/L Blood Urea Nitrogen 18 7-18 MG/DL Creatinine 0.84 0.60-1.30 MG/DL Estimat Glomerular Filtration Rate 86 BUN/Creatinine Ratio 21 Glucose Level 99 70-105 MG/DL Calcium Level 9.0 8.5-10.1 MG/DL Corrected Calcium 8.9 8.5-10.1 MG/DL Magnesium Level 2.1 1.6-2.4 MG/DL Total Bilirubin 1.2 H 0.1-1.0 MG/DL Aspartate Amino Transf (AST/SGOT) 28 5-34 U/L Alanine Aminotransferase (ALT/SGPT) 28 0-55 U/L Alkaline Phosphatase 98 40-136 U/L Myoglobin 35.7 10.0-92.0 NG/ML Troponin I < 0.028 <0.028 NG/ML B-Type Natriuretic Peptide 654.4 H <100.0 PG/ML Total Protein 7.0 6.4-8.2 GM/DL Albumin 4.1 3.2-4.5 GM/DL TSH Dougherty Testing 1.34 0.35-4.94 UIU/ML My Orders Orders - RASHAAD BOWLES MD Ekg Tracing (03/10/22 18:04) Monitor-Rhythm Ecg Trace Only (03/10/22 18:04) Thyroid Analyzer (03/10/22 18:56) Vital Signs/I&O 03/10/22 03/10/22 17:56 21:00 Temp 36.6 36.6 Pulse 105 97 Resp 18 18 B/P (MAP) 119/81 (94) 135/80 Blood Pressure Mean: 94 Progress Progress Note : Progress Note Work-up was unremarkable. Patient was relatively asymptomatic. Rate remained controlled. See discharge instructions for more detailed discussion. Initial ECG Impression Date: Mar 10, 2022 Initial ECG Impression Time: 18:09 Initial ECG Rate: 92 Initial ECG Rhythm: A Fib/Flutter Initial ECG Impression: Atrial Fibrillation Comment Rate controlled atrial fibrillation with no ST elevation or depression. Incomplete right bundle branch block. No axis deviation. Departure Impression Primary Impression: New onset atrial fibrillation Disposition: 01 HOME, SELF-CARE Condition: Stable Departure-Patient Inst. Decision time for Depature: 20:46 Referrals: LORIE SCOTT MD FACP FAC CCDS DONTE CARRASCO MD, DAVID L JR, OCTAVIO CORDOVA MD (PCP/Family) Primary Care Physician Patient Instructions: Atrial Fibrillation and Atrial Flutter ED Add. Discharge Instructions: You have new atrial fibrillation. One of the risks associated with atrial fibrillation is uncontrolled rapid heart rate. If you are noticing persistent heart rate greater than 100 bpm, you may increase your atenolol to 50 mg daily by either taking 50 mg at bedtime or taking 25 mg twice a day. If increasing atenolol causes your heart rate to drop too low, lightheadedness, excessive fatigue, or other problems, please return to the 25 mg at bedtime and discuss further with Dr. Orr or your chemical process analyst. Continue taking warfarin and manage your warfarin as previously directed. You need to follow-up with a chemical process analyst as soon as possible for monitoring of your A. fib and further work-up. A list of chemical process analyst is provided below. You may call the chemical process analyst office directly or have Dr. Orr arrange a referral for you. Avoid alcohol as this may make the regulation of your heart rate, blood pressure, and warfarin more difficult. If you do consume alcohol, use in moderation. Call with questions or concerns. Return to the ER if you have worsening symptoms despite following these instructions. All discharge instructions reviewed with patient and/or family. Voiced understanding. Copy Copies To 1: OCTAVIO ORR MD, JOSHUA T MD Mar 10, 2022 20:53
[2022-03-10 21:00] VITALS: BP 135/80
== END 2022-03-10 21:00 | disposition home or self-care (01) ==
LOC: EDUNIT# 17:29 → ER 17:31
DX: I48.91 Unspecified atrial fibrillation (principal); Z86.711 Personal history of pulmonary embolism; Z79.01 Long term (current) use of anticoagulants
CPT/HCPCS: 36415; 71045; 80053; 83735; 83874; 83880; 84443; 84484; 85025; 85610; 85730; 93005

== ENCOUNTER → 2022-03-10 | Outpatient (CLI) | payer MEDICARE, OTHER | LOC: CARD 15:19 | PROVIDERS: ATTEND Family Medicine | DX: R00.0 Tachycardia, unspecified (principal) | CPT/HCPCS: 93005 ==

== ENCOUNTER → 2022-03-14 | Outpatient (CLI) | payer MEDICARE, OTHER ==
[~2022-03-14] MED LIST changes: +ACET325T38 PO; +ATEN50TA PO; +CETI10TA17 PO; +POLY30DR6 OP; +TEMA30CA PO; +URSO300C3 PO; +WARF3TAB56 PO
== END ==
LOC: CARD 14:06
PROVIDERS: ATTEND Internal Medicine Cardiovascular Disease
DX: I35.0 Nonrheumatic aortic (valve) stenosis (principal); I11.9 Hypertensive heart disease without heart failure; I25.10 Atherosclerotic heart disease of native coronary artery without angina pectoris
CPT/HCPCS: 93306

== ENCOUNTER → 2022-03-17 | Outpatient (CLI) | payer MEDICARE, OTHER ==
[~2022-03-17] MED LIST changes: +HEParin 1000 UNIT/ML (10ML VIAL) FOR BOLUS ONE; +MIDAZOLAM 5 MG/5 ML (VERSED) VIAL ONE; +REGADENOSON 0.4 MG/5 ML SYR (LEXISCAN) IV ONE; +fentaNYL INJ 100 MCG/2 ML AMP ONE; +proPOfol 200 MG/20 ML (DIPRIVAN) VIAL IV ONE
[2022-03-17] MEDS: CATHETER FLUSH 10 ML SYR IVP PRN ×2 (08:28→09:42)
[2022-03-17 09:39] VITALS: BP 134/102
--- NOTE | 2022-03-17 11:52 | Cardiology Stress Test Report ---
Stress Test Report Date of Procedure/Referring: Date of Procedure: Mar 17, 2022 PCP Octavio Orr MD Admitting Physician Admitting Physician: Attending Physician: Jenny Canas MD Indications: CP Baseline Heart Rate: 82 Baseline Blood Pressure: Blood Pressure Systolic: 134 Blood Pressure Diastolic: 102 Baseline Vitals Vital Signs Date Time Temp Pulse Resp B/P (MAP) Pulse Ox O2 Delivery O2 Flow Rate FiO2 03/17/22 09:39 84 16 134/102 (113) 95 Room Air Baseline EKG: Baseline EKG: A fib Summary After explaining the procedure to the patient, he signed a consent and then brought to the stress nuclear laboratory. Patient received 0.4 mg Lexiscan for stress test, ECG, heart rate and blood pressure were monitored continuously. Resting and stress dose of radio tracer were injected, imaging was acquired and reviewed in short axis, horizontal long axis and vertical long axis views. TID: 1.07 SSS: 6 SDS: 4 EF: 60 1. Patient tolerated Lexiscan well 2. Baseline atrial fibrillation persisted during test 3. Reversible ischemia involving the mid to apical inferoseptum and apical inferior wall 4. Normal left ventricular size, ejection fraction 60%, underlying rhythm and atrial fibrillation Copy Copies To 1: OCTAVIO ORR MD, BASHAR J MD Mar 17, 2022 11:51
== END ==
LOC: CARD 08:08
PROVIDERS: ATTEND Internal Medicine Cardiovascular Disease
DX: I10 Essential (primary) hypertension (principal); I25.10 Atherosclerotic heart disease of native coronary artery without angina pectoris
CPT/HCPCS: 78452; 93017; A9502

== ENCOUNTER 2022-03-19 07:10 | Day surgery (SDC) | payer MEDICARE, OTHER ==
[~2022-03-19] VITALS: Ht 177.8 cm; Wt 88.2 kg
[2022-03-19] VITALS (22 sets, daily range): BP systolic 79–165; BP diastolic 48–114
[~2022-03-19 07:10] MED LIST changes: -ACET325T38 PO; -ATEN50TA PO; -CETI10TA17 PO; -HEParin 1000 UNIT/ML (10ML VIAL) FOR BOLUS ONE; -MIDAZOLAM 5 MG/5 ML (VERSED) VIAL ONE; -POLY30DR6 OP; -REGADENOSON 0.4 MG/5 ML SYR (LEXISCAN) IV ONE; -TEMA30CA PO; -URSO300C3 PO; -WARF3TAB56 PO; -fentaNYL INJ 100 MCG/2 ML AMP ONE; -proPOfol 200 MG/20 ML (DIPRIVAN) VIAL IV ONE
[2022-03-19] MEDS ORDERED: HEParin (CATH LAB) 2,000 ML IV ONE (07:24)
[2022-03-19] MEDS ORDERED: LIDOCAINE 1% INJ 20 ML VIAL ONE (07:24)
[2022-03-19] MEDS ORDERED: LIDOCAINE 2% VISCOUS 15 ML UDC ONE (07:24)
[2022-03-19] MEDS ORDERED: NS IV 1000 ML 1,000 ML ONE (07:24)
[2022-03-19] MEDS ORDERED: NS IV 1000 ML 1,000 ML IV SCH ×2 (07:30)
[2022-03-19 07:53] LABS: HEMOGLOBIN 13.2 g/dL (13.3-17.7)
[2022-03-19 07:54] LABS: MEAN PLATELET VOLUME 11.1 fL (9.0-12.2); WHITE BLOOD COUNT 4.1 10^3/uL (4.3-11.0)
[2022-03-19] MEDS ORDERED: proPOfol 200 MG/20 ML (DIPRIVAN) VIAL IV ONE (08:13)
[2022-03-19 08:15] LABS: INR 1.6 (0.8-1.4)
[2022-03-19] MEDS ORDERED: LIDOCAINE 2% VISCOUS 15 ML UDC PO ONE (08:25)
--- NOTE | 2022-03-19 08:30 | Cardiac Procedure Note-CS/ASA ---
Pre-Procedure Note Pre-Op Procedure Note Date of Available H&P: Mar 13, 2022 Date H&P Reviewed: Mar 19, 2022 Time H&P Reviewed: 08:00 History & Physical: H&P Reviewed, Patient Examed, No changes noted Pre-Operative Diagnosis: CAD, atrial fibrillation Conscious Sedation Pre-Proced Time 08:00 ASA Score 3 For ASA 3 and 4: Consider anesthesia and medical clearance. Also, for patients with a history of failed moderate sedation consider anesthesia. Airway Lungs Heart ASA score ASA 1: a normal healthy patient ASA 2: a patient with a mild systemic disease (mid diabetes, controlled hypertension, obesity x ASA 3: a patient with a severe systemic disease that limits activity (angina, COPD, prior Myocardial infarction) ASA 4: a patient with an incapacitating disease that is a constant threat to life (CHF, renal failure) ASA 5: a moribund patient not expected to survive 24 hrs. (ruptured aneurysm) ASA 6: a declared brain- patient whose organs are being harvested. For emergent operations, add the letter E after the classification Mallampati Classification Grade 3 Sedation Plan Analgesia, Amnesia, Plan communicated to team members, Discussed options with patient/fam, Discussed risks with patient/fam The patient is an appropriate candidate to undergo the planned procedure, sedation, and anesthesia. The patient immediately re-assessed prior to indication. DONTE CARRASCO MD Mar 19, 2022 08:30
[2022-03-19 08:31] LABS: POTASSIUM 3.7 MMOL/L (3.6-5.0)
[2022-03-19 08:32] LABS: CALCIUM 8.9 MG/DL (8.5-10.1)
[2022-03-19 08:33] LABS: TOTAL PROTEIN 7.1 GM/DL (6.4-8.2)
[2022-03-19 08:35] LABS: BILIRUBIN,TOTAL 2.1 MG/DL (0.1-1.0)
[2022-03-19] MEDS ORDERED: URSO300C3 PO (08:36)
[2022-03-19] MEDS ORDERED: CETI10TA17 PO (08:36)
[2022-03-19] MEDS ORDERED: TEMA30CA PO (08:36)
[2022-03-19] MEDS ORDERED: POLY30DR6 OP (08:36)
[2022-03-19] MEDS ORDERED: ACET325T38 PO (08:36)
[2022-03-19] MEDS ORDERED: WARF3TAB56 PO ×2 (08:36)
[2022-03-19] MEDS ORDERED: ATEN50TA PO (08:36)
[2022-03-19 08:37] LABS: CREATININE SERUM 0.88 MG/DL (0.60-1.30)
--- NOTE | 2022-03-19 10:08 | Cardioversion ---
Cardioversion PROCEDURE PHYSICIAN: Donte Canas DATE OF PROCEDURE: 03/19/22 DIRECT EXTERNAL ELECTRICAL CARDIOVERSION: Indications: Atrial Fibrillation with rapid ventricular rate Preoperative diagnoses: Atrial Fibrillation with rapid ventricular rate Postoperative diagnosis: Sinus rhythm, Successful Electrical Cardioversion Anesthesia: By Anesthesia services Complications: None Specimen: None Contrast: 0 Flouroscopy: none Procedure Details: The patient was brought the engineering laboratory technician after informed consent was taken, all the risks and complications were explained including the risk of stroke. Electrical cardioversion was carried out with anesthesia support with propofol. 200 joules of synchronized shock was delivered through external patches which promptly restored sinus rhythm. The patient tolerated the procedure well. Conclusions: Successful electrical cardioversion and terminating atrial fibrillation Final Diagnosis: Paroxysmal atrial fibrillation Coronary artery disease Hypertension DONTE CANAS MD Mar 19, 2022 10:08
--- NOTE | 2022-03-19 10:13 | Cardiac Cath Report ---
Cardiac Cath Report Physician (s)/Press Operator [employer] (s) Physician DONTE CARRASCO MD Pre-Procedure Diagnosis Pre-Procedure Diagnosis: CAD, atrial fibrillation Post-Procedure Note Procedure Start Date: Mar 19, 2022 Name of Procedure: Left heart catheterization Aortic root angiogram Findings/Procedure Note PROCEDURE NOTE: 86-year-old gentleman with history of atrial fibrillation, had an abnormal stress test, scheduled for cardiac catheterization. Underwent electrical cardioversion with NELLA earlier then we proceeded with the cardiac catheterization. After explaining the procedure to the patient, all pros and cons were explained, all questions were answered. The patient signed the consent and then he was placed on the cardiac catheterization laboratory. Groin was prepped SL fashion local anesthesia was used. Sheath placed in the right femoral artery. I was unable to engage the Kristy left 4.0 catheter in the left system due to the size of the ascending aorta, I exchanged the catheter and used 4.5, was able to engage the left main and did angiogram. Using the Kristy right I was unable to visualize the right coronary artery, I advanced a pigtail catheter to the left ventricular cavity, pressure was measured, pullback LV to aorta was done, I did aortic root angiogram. Then I advanced a AL-1 diagnostic catheter to the ascending aorta I was able to engage the right coronary artery and angiogram was done. At the end of the procedure the sheath was removed. Closure device was deployed Patient received a total of 7000 units of heparin during the procedure due to cardioversion FINDINGS: Hemodynamics LV 117/11, end-diastolic pressure of 11 Aorta 122/68 mean of 89 ANATOMY: Left Main is free of obstructive disease Left Anterior Descending is slightly tortuous with mild disease nonobstructive disease Left Circumflex nondominant with mild disease Right Coronary Artery is tortuous artery with slow flow nonobstructive disease, the right coronary artery has anomalous origin that is closer to the noncoronary cusp LV Gram was not done, pressure was measured Aorta evaluation done with aortic root angiogram which showed normal aortic valve, dilated ascending aorta with aneurysm in the ascending aorta. No dissection. 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 Otherwise nonobstructive disease in the left system slightly tortuous LAD 3. Normal left ventricular end-diastolic pressure 4. Ascending thoracic aortic aneurysm noted, did not measure it. Recommend evaluating CT angiogram of the chest DISCUSSION AND RECOMMENDATION: Continue with medical therapy. Anesthesia Type: Conscious Sedation Estimated blood loss (mL): 30 ml Contrast Amount: 70 ml Total Radiation Dose: 587 mGy Post-Procedure Diagnosis Post-operative diagnosis: Coronary artery disease Paroxysmal atrial fibrillation Thoracic aortic aneurysm Hypertension DONTE CARRASCO MD Mar 19, 2022 10:13
[2022-03-19] MEDS ORDERED: PATIENT MAY USE OWN MEDS, ALL PO SCH (10:15)
--- NOTE | 2022-03-19 10:15 | Anesthesia-General Post-Op ---
MAC Patient Condition Mental Status/LOC: Same as Preop Cardiovascular: Satisfactory Nausea/Vomiting: Absent Respiratory: Satisfactory Pain: Controlled Complications: Absent Post Op Complications Complications None Follow Up Care/Instructions Patient Instructions None needed. Anesthesiology Discharge Order Discharge Order Patient was doing well this morning after the NELLA/Cardioversion. He remained in the labor relations consultant, awaiting cardiac catheterization. He had no complaints, stable vital signs, no apparent adverse anesthesia problems. No complications reported per nursing. We will be available if needed during the cardiac cath. CELINE HURST DO Mar 19, 2022 10:15
[2022-03-19] MEDS ORDERED: warFARin 10 MG (COUMADIN) TAB PO NR (11:00)
[2022-03-19] MEDS: NS IV 1000 ML 1,000 ML IV SCH ×2 (15:08→21:22)
[2022-03-19] MEDS: DRONEDARONE 400 MG TABLET PO SCH ×2 (15:11→21:19)
[2022-03-19] MEDS ORDERED: NON-FORMULARY MEDICATION 1 EA EA (Temazepam 30 MG) PO SCH (21:00)
[2022-03-19] MEDS ORDERED: POLYETHYLENE GLYCOL OP SCH (21:00)
[2022-03-19] MEDS ORDERED: TEMAZEPAM 15 MG (RESTORIL) CAP PO SCH (21:00)
[2022-03-19] MEDS ORDERED: NON-FORMULARY MEDICATION 1 EA EA (Atenolol 50 MG) PO SCH (21:00)
[2022-03-19] MEDS: ATENOLOL 25 MG (TENORMIN) TAB PO SCH (21:21)
[2022-03-19] MEDS: ARTIFICAL TEARS 0.4 ML UNIT DOSE (REFRESH PLUS) OP SCH (21:22)
[2022-03-20] VITALS: BP 104/73
[2022-03-20 04:38] VITALS: BP 110/61
[2022-03-20] MEDS: NS IV 1000 ML 1,000 ML IV SCH (06:19)
[2022-03-20] MEDS ORDERED: DRON400T6 PO (06:20)
--- NOTE | 2022-03-20 06:20 | Discharge Inst-Post CATH ---
Discharge Inst-CATH/EP Problems Reviewed?: Yes Post Cardiac Cath/EP D/C Inst Follow Up/Plan Appointment with Dr Canas in 1-2 weeks <b>CARDIAC CATH/EP PROCEDURE DISCHARGE INSTRUCTIONS</b> ACTIVITY * Go Home directly and rest. * Limit activity of the leg (or wrist if it was used) for 7 days including aerobics, swimming, jogging, bicycling, etc. * Restrict stair-climbing for 7 days if possible, if not, climb up with your non-cath leg, then bring together on the same step. * Avoid lifting, pushing, pulling or excessive movement of the affected extremity for 7 days. * Customary sexual activity may be resumed after 2 days-use caution not to use a position that strains or causes pain to the affected extremity. * No driving for 24 hours. * NO SMOKING. * Avoid straining for bowel movements for 7 days. * Gentle walking on level ground is allowed. * Returning to work will depend on the type of procedure and the results. Your doctor will discuss this with you. CALL YOUR DOCTOR FOR ANY OF THE FOLLOWING: *If bleeding from the puncture site occurs- Apply gentle pressure to site with clean cloth and call your doctor or EMS. * If a knot or lump forms under the skin, increases in size, or causes pain. * If bruising appears to be worsening or moving further down your leg instead of disappearing. * Temperature above 101 F. CARE OF YOUR GROIN INCISION; * Bruising or purple discoloration of the skin near the puncture site is common. * You may shower only, no bathtub bathing for 5 days. Be careful to avoid slipping as your leg may feel stiff. * If a closure device was used on your femoral artery, please see the attached guide regarding care of the device and your leg. * Leave dressing on FOR 24 hours. CARE OF YOUR WRIST INCISION; * Bruising or purple discoloration of the skin near the puncture site is common. * You may shower. * DO NOT submerge wrist. * Leave dressing on FOR 24 hours. DONTE CANAS MD Mar 20, 2022 06:20
[2022-03-20 07:51] VITALS: BP 120/68
[2022-03-20 08:00] VITALS: BP 102/57
--- NOTE | 2022-03-20 08:09 | Cardiology Progress Note ---
Subjective Date Seen by Provider: Mar 20, 2022 Time Seen by Provider: 08:08 Subjective/Events-last exam Patient was seen at bedside, laying down comfortably Groin is healing well Reporting episodes of palpitation Review of Systems General: No Chills, No Night Sweats, No Fatigue, No Malaise, No Appetite, No Other HEENT: No Head Aches, No Visual Changes, No Eye Pain, No Ear Pain, No Dysphasia, No Sinus Congestion, No Post Nasal Drip, No Sore Throat, No Other Pulmonary: No Dyspnea, No Cough, No Pleuritic Chest Pain, No Other Cardiovascular: Palpitations; No: Chest Pain, Orthopnea, Paroxysmal Noc. Dyspnea, Edema, Lt Headedness, Other Objective-Cardiology Exam Last Set of Vital Signs Vital Signs 03/20/22 07:51 Temp 37.1 Pulse 58 Resp 17 B/P (MAP) 120/68 (85) Pulse Ox 95 O2 Delivery Room Air I&O Intake and Output 03/20/22 00:00 Intake Total 450 ml Output Total 75 ml Balance 375 ml Intake Oral 450 ml Output Urine Total 75 ml General: Alert, Oriented X3, Cooperative HEENT: Atraumatic, PERRLA Neck: Supple, No JVD, No Thyromegaly Lungs: Clear to Auscultation, Normal Air Movement Heart: Regular Rate, Normal S1, Normal S2, No Murmurs Abdomen: Normal Bowel Sounds, Soft, No Tenderness, No Hepatosplenomegaly, No Masses Extremities: No Clubbing, No Cyanosis, No Edema, Normal Pulses, No Tenderness/Swelling Skin: No Rashes, No Breakdown, No Significant Lesion Neuro: Normal Gait, Normal Speech, Strength at 5/5 X4 Ext, Normal Tone, Sensation Intact Psych/Mental Status: Mental Status NL, Mood NL A/P-Cardiology Admission Diagnosis Paroxysmal atrial fibrillation Coronary artery disease Hypertension Hyperlipidemia. Assessment/Plan Paroxysmal atrial fibrillation Status post NELLA with electrical cardioversion Started on [place], continue to monitor Arrange for follow-up as an outpatient Coronary artery disease, cardiac catheterization carried out on March 19, 2022 showing mild disease nonobstructive disease Hypertension, continue current medication Hyperlipidemia Planning for discharge and follow-up with my office next week DONTE CARRASCO MD Mar 20, 2022 08:09
[2022-03-20] MEDS: ATENOLOL 25 MG (TENORMIN) TAB PO SCH (08:13)
[2022-03-20] MEDS: DRONEDARONE 400 MG TABLET PO SCH (08:13)
[2022-03-20] MEDS: ARTIFICAL TEARS 0.4 ML UNIT DOSE (REFRESH PLUS) OP SCH (08:14)
[2022-03-20] MEDS ORDERED: CETIRIZINE HCL (ZYRTEC) 10 MG TAB PO SCH (09:00)
[2022-03-20] MEDS ORDERED: LORATADINE (CLARITIN) 10 MG TAB PO SCH (09:00)
[2022-03-20] MEDS ORDERED: NON-FORMULARY MEDICATION 1 EA EA (Ursodiol 300 MG) PO SCH (09:00)
== END 2022-03-20 11:00 | disposition home or self-care (01) ==
LOC: SDC 07:10 → CSD 10:32 → SDC 03-20 11:00
PROVIDERS: ATTEND Internal Medicine Cardiovascular Disease
DX: I25.10 Atherosclerotic heart disease of native coronary artery without angina pectoris (principal); I48.0 Paroxysmal atrial fibrillation; I10 Essential (primary) hypertension; I71.2 Thoracic aortic aneurysm, without rupture; Z87.891 Personal history of nicotine dependence
CPT/HCPCS: 80053; 85027; 85610; 85730; 87081; 92960; 93005; 93312; 93458; 93567; C1760; C1894; 36415

== ENCOUNTER → 2022-03-25 | Outpatient (CLI) | payer MEDICARE, OTHER ==
[~2022-03-25] MED LIST changes: +ACET325T38 PO; +ATEN50TA PO; +CATHETER FLUSH 10 ML SYR IV PRN; +CETI10TA17 PO; +DRON400T6 PO; +HOLD METFORMIN - RECEIVED CONTRAST 20 ML VIAL IV SCH; +IOHEXOL 350 MG/ML 100 ML (OMNIPAQUE 350) VIAL IV ONE; +NS 100 ML (IVPB) BAG IV ONE; +POLY30DR6 OP; +TEMA30CA PO; +URSO300C3 PO; +WARF3TAB56 PO
--- NOTE | 2022-03-25 13:02 | Diagnostic Imaging Report ---
PROCEDURE: CT angiography of the chest with contrast. TECHNIQUE: Multiple contiguous axial images were obtained through the chest after uneventful bolus administration of intravenous contrast. 3D reconstructed CTA MIP acquisitions were also performed. Auto Exposure Controls were utilized during the CT exam to meet ALARA standards for radiation dose reduction. INDICATION: Aneurysm. Correlated with overlapped images from abdominal CT 07/07/2019, most recent dedicated chest CT is 10/04/2013. FINDINGS: Ascending thoracic aorta is mildly ectatic and an unchanged 4 cm without its rupture. Branching pattern of the great vessels normal. Its arch and descending aorta normal in caliber. There is a small unilateral right pleural effusion nonloculated to a depth of 2.9 cm. There is chronic coronary artery atherosclerotic vascular calcifications. Some subpleural atelectatic changes subsegmental right greater than left lung base. No consolidating pneumonia. There is a tiny 3 to 4 mm pericardial effusion. Visualized upper abdomen demonstrates stable splenomegaly with chronic benign hemangioma at the dome of the liver near the junction of the right and left lobes stable. IMPRESSION: Mild ectasia, stable ascending thoracic aorta, nonruptured right pleural effusion and mild basilar atelectasis. Chronic cavernous hemangiomas a benign liver finding with stable chronic splenomegaly. Dictated by: Dictated on workstation # [id number]
== END ==
LOC: RAD 11:56
PROVIDERS: ATTEND Internal Medicine Cardiovascular Disease
DX: I71.2 Thoracic aortic aneurysm, without rupture (principal); J90 Pleural effusion, not elsewhere classified; D18.09 Hemangioma of other sites; J98.11 Atelectasis
CPT/HCPCS: 71275

== ENCOUNTER → 2022-06-25 | Outpatient (CLI) | payer MEDICARE, OTHER ==
[~2022-06-25] MED LIST changes: -CATHETER FLUSH 10 ML SYR IV PRN; -HOLD METFORMIN - RECEIVED CONTRAST 20 ML VIAL IV SCH; -IOHEXOL 350 MG/ML 100 ML (OMNIPAQUE 350) VIAL IV ONE; -NS 100 ML (IVPB) BAG IV ONE
--- NOTE | 2022-06-25 12:55 | Diagnostic Imaging Report ---
EXAMINATION: US Right Lower Extremity Venous Duplex. TECHNIQUE: Multiple real-time grayscale images were obtained over the right lower extremity in various projections. Additional spectral analysis and color Doppler duplex images were also obtained. HISTORY: Right lower extremity pain and swelling. COMPARISON: 07/24/2017. FINDINGS: There is a partially occlusive deep vein thrombus within the right common femoral vein. The right deep femoral vein, superficial femoral vein and popliteal vein are patent with normal urbano scale and doppler appearance. There is normal respiratory variation and augmentation. IMPRESSION: 1. 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 The appearance is somewhat suggestive of a chronic process, although this was not seen on the prior exam from 2018. Recommend correlation with patient history. 2. The remainder of the right lower extremity venous system is patent. Dictated by: Dictated on workstation # [id number]
== END ==
LOC: RAD 12:30
PROVIDERS: ATTEND Family Medicine
DX: I82.411 Acute embolism and thrombosis of right femoral vein (principal)